=== PATIENT | male | born 1980 | race Caucasian/White ===

== ENCOUNTER 2016-12-03 16:35 | Emergency (ER) | payer SELFPAY ==
--- NOTE | 2016-12-03 16:47 | UC ---
Abdominal Pain Male HPI - HPI Summary HPI Summary: 36 YEAR OLD MALE PRESENTS WITH COMPLAINS OF EPIGASTRIC PAIN, DIARRHEA, AND FATIGUE. - History of Current Complaint Stated Complaint: STOMACH ACHE Time Seen by Provider: 12/03/16 16:47 Hx Obtained From: Patient Onset/Duration: Sudden Onset Severity Initially: Moderate Severity Currently: Moderate Pain Scale Used: 0-10 Numeric - 5 - Allergies/Home Medications Allergies/Adverse Reactions: Allergies Allergy/AdvReac Type Severity Reaction Status Date / Time No Known Allergies Allergy Verified 12/03/16 17:03 PMH/Surg Hx/FS Hx/Imm Hx Previously Healthy: Yes - Surgical History Surgical History: Yes Surgery Procedure, Year, and Place: HERNIA REPAIR. FINGER 2L SX TO REDUCE DISLOCATION - Family History Known Family History: Positive: None, Other - no FMH of joint disorders - Social History Alcohol Use: None Substance Use Type: None Smoking Status (MU): Light Every Day Tobacco Smoker Type: Cigarettes Amount Used/How Often: 6-7 cigarettes daily Length of Time of Smoking/Using Tobacco: 21 YRS Have You Smoked in the Last Year: Yes - Immunization History Most Recent Influenza Vaccination: no Review of Systems Constitutional: Negative Skin: Negative Eyes: Negative ENT: Negative Respiratory: Negative Cardiovascular: Negative Gastrointestinal: Abdominal Pain Genitourinary: Negative Motor: Negative Neurovascular: Negative Musculoskeletal: Negative Neurological: Negative Psychological: Negative All Other Systems Reviewed And Are Negative: Yes Physical Exam Triage Information Reviewed: Yes Eye Exam: Normal ENT Exam: Normal Dental Exam: Normal Neck exam: Normal Neck: Positive: 1 Respiratory Exam: Normal Cardiovascular Exam: Normal Abdomen Description: Positive: Other: - EPIGASTRIC PAIN Musculoskeletal Exam: Normal Neurological Exam: Normal Psychological Exam: Normal Skin Exam: Normal Abd Pain Male Course/Dx - Differential Dx/Clinical Impression Provider Diagnoses: EPIGASTRIC PAIN. DIARRHEA. NAUSEA Discharge - Discharge Plan Condition: Stable Disposition: HOME Prescriptions: Omeprazole [Prilosec] 20 mg PO DAILY #30 cap Patient Education Materials: Gastroesophageal Reflux Disease (ED), Acute Nausea and Vomiting (ED), Acute Diarrhea (ED) Referrals: AKILAH Ayon [Primary Care Provider] -
[2016-12-03 17:03] VITALS: BP 129/70
== END 2016-12-03 17:21 | disposition home or self-care (01) ==
LOC: UCCORT 16:35
DX: R10.13 Epigastric pain (principal); R19.7 Diarrhea, unspecified; R11.0 Nausea; R53.83 Other fatigue; F17.210 Nicotine dependence, cigarettes, uncomplicated
CPT/HCPCS: 82272; 87045; 87046; 87077; 87338; 87493; 87899; 99212; G0463

== ENCOUNTER 2017-02-01 13:50 | Emergency (ER) | payer SELFPAY ==
[2017-02-01 14:21] VITALS: BP 118/65
--- NOTE | 2017-02-01 15:40 | UC ---
Respiratory Complaint HPI - HPI Summary HPI Summary: C/O cough x 10 days. Seen 01/24 [facility] Dx: URI getting worse especially at night - History of Current Complaint Chief Complaint: UCRespiratory Stated Complaint: COUGH/FEVER/VOMITING Time Seen by Provider: 02/01/17 15:32 Hx Obtained From: Patient Onset/Duration: Sudden Onset, Lasting Days - 10, Worse Since - last 4-5 days Timing: Constant Severity Initially: Mild Severity Currently: Moderate Character: Cough: Productive - mucus this morning. Associated Signs And Symptoms: Positive: Dyspnea, Wheezing, URI, Nasal Congestion. Negative: Pleuritic Chest Pain, Sinus Discomfort Related History: Seasonal Allergies - Allergies/Home Medications Allergies/Adverse Reactions: Allergies Allergy/AdvReac Type Severity Reaction Status Date / Time No Known Allergies Allergy Verified 02/01/17 14:21 PMH/Surg Hx/FS Hx/Imm Hx Previously Healthy: Yes Respiratory History: Asthma - as a child - Surgical History Surgical History: Yes Surgery Procedure, Year, and Place: HERNIA REPAIR. FINGER 2L SX TO REDUCE DISLOCATION - Family History Known Family History: Positive: Diabetes, Other - no FMH of joint disorders Negative: Cardiac Disease, Hypertension - Social History Occupation: Employed Full-time Lives: With Family Alcohol Use: None Substance Use Type: None Smoking Status (MU): Light Every Day Tobacco Smoker Type: Cigarettes Amount Used/How Often: 6-7 cigarettes daily Length of Time of Smoking/Using Tobacco: 21 YRS Have You Smoked in the Last Year: Yes Household Exposure Type: Cigarettes Cessation Counseling: Patient Advised to Stop - Immunization History Most Recent Influenza Vaccination: no Review of Systems ENT: Sore Throat, Ear Ache - left ear the last couple of days Respiratory: Shortness Of Breath, Cough Gastrointestinal: Abdominal Pain - sore abdominal muscles with coughing, Vomiting - with post tussive emesis Is Patient Immunocompromised?: No All Other Systems Reviewed And Are Negative: Yes Physical Exam Triage Information Reviewed: Yes Appearance: No Pain Distress, Ill-Appearing - mild, Obese Vital Signs: Initial Vital Signs Temp 98 F 02/01/17 14:16 Pulse 70 02/01/17 14:16 Resp 18 02/01/17 14:16 BP 118/65 02/01/17 14:16 Pulse Ox 97 02/01/17 14:16 Vital Signs Reviewed: Yes Eyes: Positive: Conjunctiva Clear ENT: Positive: Pharynx normal, Nasal congestion, TMs normal - partially obscurred by wax. Neck exam: Normal Respiratory: Positive: Wheezing - expiratory wheeze with coughing. Cardiovascular Exam: Normal Musculoskeletal Exam: Normal Neurological Exam: Normal Psychological Exam: Normal Skin Exam: Normal UC Diagnostic Evaluation - Laboratory O2 Sat by Pulse Oximetry: 97 Respiratory Course/Dx - Differential Dx/Diagnosis Differential Diagnosis/HQI/PQRI: Asthma, Lower Resp Infection, Sinusitis Provider Diagnoses: Acute URI. Acute bronchospasm Discharge - Discharge Plan Condition: Stable Disposition: HOME Prescriptions: Albuterol HFA INHALER* [Ventolin HFA Inhaler*] 2 puff INH Q4H PRN #1 mdi PRN Reason: Wheezing predniSONE TAB* [Deltasone TAB*] 20 mg PO DAILY #18 tab Patient Education Materials: Upper Respiratory Infection (ED), Wheezing (ED), Prednisone (By mouth), Albuterol (By breathing)
== END 2017-02-01 16:25 | disposition home or self-care (01) ==
LOC: UCCORT 13:50
DX: J06.9 Acute upper respiratory infection, unspecified (principal); J98.01 Acute bronchospasm; J30.2 Other seasonal allergic rhinitis; F17.210 Nicotine dependence, cigarettes, uncomplicated; Z71.6 Tobacco abuse counseling
CPT/HCPCS: 99212; G0463

== ENCOUNTER 2019-01-13 14:43 | Emergency (ER) | payer OTHER ==
[2019-01-13 15:35] VITALS: BP 132/74
--- NOTE | 2019-01-13 16:17 | UC ---
Upper Extremity HPI - HPI Summary HPI Summary: 38-year-old male presents stating he needs clearance to return to work after having a work-related injury yesterday. Patient states that he was lifting a heavy box yesterday when he felt a pop in his right arm and briefly lost strength in that arm and when he tried to stabilize box with his left arm developed pain in the biceps. Patient states that he was evaluated in the [facility] emergency room last evening and had negative x- rays. He was given pain medication in the emergency room with improvement in symptoms. Patient states that he is presently without any pain. Reports normal strength in both arms without any numbness or tingling. - History of Current Complaint Chief Complaint: UCUpperExtremity Stated Complaint: L ARM INJ Time Seen by Provider: 01/13/19 15:30 Hx Obtained From: Patient Pain Intensity: 0 - Allergies/Home Medications Allergies/Adverse Reactions: Allergies Allergy/AdvReac Type Severity Reaction Status Date / Time No Known Allergies Allergy Verified 01/13/19 15:35 Home Medications: Home Medications Loratadine [Claritin 10 MG CAP] 10 mg PO DAILY 01/13/19 [History Confirmed 01/13] metFORMIN* [Glucophage 500 MG TAB *] 500 mg PO BID 01/13/19 [History Confirmed 01/13/19] PMH/Surg Hx/FS Hx/Imm Hx Endocrine History: Diabetes - Surgical History Surgical History: Yes Surgery Procedure, Year, and Place: HERNIA REPAIR. FINGER 2L SX TO REDUCE DISLOCATION - Family History Known Family History: Positive: Diabetes Negative: Cardiac Disease, Hypertension - Social History Occupation: Employed Full-time Lives: With Family Alcohol Use: None Substance Use Type: None Smoking Status (MU): Light Every Day Tobacco Smoker Type: Cigarettes Amount Used/How Often: 6-7 cigarettes daily Length of Time of Smoking/Using Tobacco: 21 YRS Have You Smoked in the Last Year: Yes Household Exposure Type: Cigarettes - Immunization History Most Recent Influenza Vaccination: no Review of Systems All Other Systems Reviewed And Are Negative: Yes Constitutional: Negative: Fever, Chills Skin: Negative: Rash, Bruising Respiratory: Negative: Shortness Of Breath, Cough Cardiovascular: Negative: Palpitations, Chest Pain Gastrointestinal: Negative: Abdominal Pain, Vomiting, Nausea Genitourinary: Positive: Negative Motor: Negative: Weakness Neurovascular: Negative: Decreased Sensation Musculoskeletal: Negative: Decreased ROM, Myalgia Neurological: Negative: Paresthesia, Numbness Is Patient Immunocompromised?: No Physical Exam - Summary Physical Exam Summary: GENERAL APPEARANCE: Alert and cooperative obese male who appears to be in no acute distress. NECK: Neck supple, non-tender. CARDIAC: Normal S1 and S2. No S3, S4 or murmurs. Rhythm is regular. There is no peripheral edema, cyanosis or pallor. Extremities are warm and well perfused. Capillary refill is less than 2 seconds. Peripheral pulses intact. LUNGS: Clear to auscultation without rales, rhonchi, wheezing or diminished breath sounds. ABDOMEN: Positive bowel sounds. Soft, nondistended, nontender. No guarding or rebound. No masses or hepatosplenomegally. MUSKULOSKELETAL: ROM intact to all extremities. No joint erythema or tenderness. Normal muscular development. Normal gait. NEUROLOGICAL: Strength and sensation symmetric and intact to bilateral upper extremities. SKIN: Skin normal color, texture and turgor with no lesions or eruptions. Triage Information Reviewed: Yes Vital Signs: Initial Vital Signs Temp 97.8 F 01/13/19 15:26 Pulse 71 01/13/19 15:26 Resp 17 01/13/19 15:26 BP 132/74 01/13/19 15:26 Pulse Ox 95 01/13/19 15:26 Vital Signs Reviewed: Yes Upper Extremity Course/Dx - Course Course Of Treatment: 38-year-old male presents stating he needs clearance to return to work after having a work-related injury yesterday. Patient states that he was lifting a heavy box yesterday when he felt a pop in his right arm and briefly lost strength in that arm and when he tried to stabilize box with his left arm developed pain in the biceps. Patient states that he was evaluated in the [facility] emergency room last evening and had negative x- rays. He was given pain medication in the emergency room with improvement in symptoms. Patient states that he is presently without any pain. Reports normal strength in both arms without any numbness or tingling. Afebrile. Mildly hypertensive otherwise vital signs stable. On exam patient had normal strength with intact circulation and sensation to bilateral upper extremities, I was unable to elicit any tenderness with palpation, and remainder of exam was unremarkable. With patient being asymptomatic with a normal musculoskeletal and neurovascular exam I feel it is appropriate to allow him to return to work at this time. I did give him follow-up with occupational medicine should his symptoms return or if he had any concerns. Anticipatory guidance and warning symptoms are reviewed with the patient. Verbalizes understanding and agrees with plan of care. - Differential Dx/Diagnosis Differential Diagnosis/HQI/PQRI: Contusion, Fracture (Closed), Strain, Sprain, Other - biceps rupture Provider Diagnosis: Left upper arm pain Discharge ED - Sign-Out/Discharge Documenting (check all that apply): Patient Departure All imaging exams completed and their final reports reviewed: No Studies - Discharge Plan Condition: Stable Disposition: HOME Patient Education Materials: Arm Pain (ED) Referrals: Arnaldo Alvarez PA [Primary Care Provider] - Frederick Franco MD [Medical Doctor] - If Needed Additional Instructions: Your pain has resolved and your exam in the clinic today was normal. You may return to work without restriction. Follow up with occupational medicine if you have any return or symptoms. Call for appointment. - Billing Disposition and Condition Condition: STABLE Disposition: Home
== END 2019-01-13 16:22 | disposition home or self-care (01) ==
LOC: UCCORT 14:43
DX: Z51.89 Encounter for other specified aftercare (principal); M79.622 Pain in left upper arm; E11.9 Type 2 diabetes mellitus without complications; Z79.84 Long term (current) use of oral hypoglycemic drugs; F17.210 Nicotine dependence, cigarettes, uncomplicated
CPT/HCPCS: 99211; G0463

== ENCOUNTER 2019-04-08 19:26 | Emergency (ER) | payer OTHER ==
[2019-04-08 19:58] VITALS: BP 128/70
--- NOTE | 2019-04-08 20:50 | UC ---
Back Pain HPI - HPI Summary HPI Summary: Pt presents with c/o sudden onset of low back pain. Pt states he was doing alot of physical activity at work yesterday that he does not normally do. He states that he woke this morning with low back pain and stiffness. Ptr denies loss of bowel and bladder control, numbness or tingling of lower extremities - History of Current Complaint Chief Complaint: UCBackPain Stated Complaint: LOW BACK (WC) Time Seen by Provider: 04/08/19 20:03 Hx Obtained From: Patient Onset/Duration: Sudden Onset, Lasting Days, Still Present Timing: Constant Severity Initially: Severe Severity Currently: Severe Pain Intensity: 10 Pain Scale Used: 0-10 Numeric Character: Dull, Aching, Spasmodic, Stiffness Aggravating Factor(s): Movement, Lifting, Bending, Walking Alleviating Factor(s): Rest Associated Signs And Symptoms: Positive: Negative - Risk Factors AAA Risk Factors: Negative TAD Risk Factors: Negative Cauda Equina Risk Factors: Negative Epidural Abscess Risk Factors: Negative - Allergies/Home Medications Allergies/Adverse Reactions: Allergies Allergy/AdvReac Type Severity Reaction Status Date / Time No Known Allergies Allergy Verified 04/08/19 19:54 Home Medications: Home Medications Acetaminophen [Tylenol Extra Strength] 650 mg PO ONCE 04/08/19 [History Confirmed 04/08/19] PMH/Surg Hx/FS Hx/Imm Hx Previously Healthy: Yes - Surgical History Surgical History: Yes Surgery Procedure, Year, and Place: HERNIA REPAIR. FINGER 2L SX TO REDUCE DISLOCATION - Family History Known Family History: Positive: None, Diabetes, Other - no FMH of joint disorders Negative: Cardiac Disease, Hypertension - Social History Occupation: Employed Full-time Lives: With Family Alcohol Use: Rare Substance Use Type: None Smoking Status (MU): Light Every Day Tobacco Smoker Type: Cigarettes Amount Used/How Often: 1 PPD Length of Time of Smoking/Using Tobacco: 21 YRS Have You Smoked in the Last Year: Yes Household Exposure Type: Cigarettes - Immunization History Most Recent Influenza Vaccination: no Review of Systems All Other Systems Reviewed And Are Negative: Yes Constitutional: Positive: Negative Skin: Positive: Negative Eyes: Positive: Negative ENT: Positive: Negative Respiratory: Positive: Negative Cardiovascular: Positive: Negative Gastrointestinal: Positive: Negative Genitourinary: Positive: Negative Motor: Positive: Decreased ROM - low back Neurovascular: Positive: Negative Musculoskeletal: Positive: Decreased ROM, Myalgia Neurological: Positive: Negative Psychological: Positive: Negative Is Patient Immunocompromised?: No Physical Exam Triage Information Reviewed: Yes Appearance: Pain Distress, Obese Vital Signs: Initial Vital Signs Temp 97.7 F 04/08/19 19:51 Pulse 75 04/08/19 19:51 Resp 18 04/08/19 19:51 BP 128/70 04/08/19 19:51 Pulse Ox 97 04/08/19 19:51 Vital Signs Reviewed: Yes Eye Exam: Normal ENT Exam: Normal Dental Exam: Normal Neck exam: Normal Respiratory Exam: Normal Respiratory: Positive: No respiratory distress Musculoskeletal: Positive: ROM Limited @ - low back., Other: - loss of low back lordosis Neurological Exam: Normal Psychological Exam: Normal Skin Exam: Normal Back Pain Course/Dx - Differential Dx/Diagnosis Differential Diagnosis/HQI/PQRI: Herniated Disc, Sprain Provider Diagnosis: Low back strain Discharge ED - Sign-Out/Discharge Documenting (check all that apply): Patient Departure All imaging exams completed and their final reports reviewed: No Studies - Discharge Plan Condition: Stable Disposition: HOME Prescriptions: Cyclobenzaprine TAB* [Flexeril 10 MG TAB*] 10 mg PO Q8H PRN #12 tab PRN Reason: Pain - Mild Ibuprofen TAB* [Motrin TAB* 800 MG] 800 mg PO Q8H PRN #15 tab PRN Reason: Pain - Mild Patient Education Materials: Low Back Strain (ED), Core Strengthening Exercises (GEN), Lower Back Exercises (ED) Forms: *Gen. Provider Communication, *Work Release Referrals: Arnaldo Alvarez PA [Primary Care Provider] - If Needed Frederick Franco MD [Medical Doctor] - - Billing Disposition and Condition Condition: STABLE Disposition: Home
== END 2019-04-08 20:30 | disposition home or self-care (01) ==
LOC: UCCORT 19:26
DX: S39.012A Strain of muscle, fascia and tendon of lower back, initial encounter (principal); M40.56 Lordosis, unspecified, lumbar region; F17.210 Nicotine dependence, cigarettes, uncomplicated; X58.XXXA Exposure to other specified factors, initial encounter; Y92.9 Unspecified place or not applicable
CPT/HCPCS: 99212; G0463